=== PATIENT | male | born 1990 | race African-American/Black ===

== ENCOUNTER 2021-05-02 09:37 | Emergency (ER) | payer SELFPAY | END 2021-05-02 16:23 | disposition home or self-care (01) | LOC: ERS 09:37 → EDBD 09:37 → ERS 16:23 | DX: F20.2 Catatonic schizophrenia (principal); F12.10 Cannabis abuse, uncomplicated; F15.10 Other stimulant abuse, uncomplicated | CPT/HCPCS: 36415; 51701; 70450; 80053; 80306; 80307; 81003; 81015; 82550; 84443; 84484; 85025; 87040; 87086; 93005; 96374; 96375; J2060; J2310 ==